=== PATIENT | female | born 1940 | race Caucasian/White ===

== ENCOUNTER → 2023-04-14 | Outpatient (CLI) | payer MEDICARE ==
--- NOTE | 2023-04-15 15:58 | MM ---
Reason for Exam: Screening (asymptomatic). Last mammogram was performed 1 year(s) and 5 month(s) ago. Patient History: Menarche at age 12. First Full-Term at age 23. Left ovary removed at age 54. Right ovary removed at age 54. Hysterectomy at age 54. Postmenopausal. Breast cancer, right, age 71. 06/07/1999, Stereotactic Core Biopsy on the Left side. 07/07/2009, US biopsy breast VAD LT - 2 on the Left side. 08/03/2011, Malignant Mastectomy on the right side. Prior Study Comparison: 10/20/2019 Bilateral Screening Mammogram, Unknown. 10/23/2020 Bilateral Screening Mammogram, Unknown. 11/02/2021 Bilateral Screening Mammogram, Unknown. Tissue Density: Left: The breast tissue is heterogeneously dense. This may lower the sensitivity of mammography. Findings: Analyzed By CAD. Microclip from prior biopsy. Unchanged nipple inversion. Benign round and coarse calcifications scattered throughout the left breast. Chronic nodularity and unchanged areas of asymmetric density noted. There is no suspicious group of microcalcifications or new suspicious mass in either breast. Overall Assessment: Benign, BI-RAD 2 Management: Screening Mammogram of the left breast in 1 year. . Patient should continue monthly self-breast exams. A clinical breast exam by your physician is recommended on an annual basis. This exam should not preclude additional follow-up of suspicious palpable abnormalities. Electronically signed and approved by: Mikki Tellez M.D. Radiologist
== END | disposition home or self-care (01) ==
LOC: RADMAMWWP 11:21
PROVIDERS: ATTEND Family Medicine
DX: Z12.31 Encounter for screening mammogram for malignant neoplasm of breast (principal); R92.333 Mammographic heterogeneous density, bilateral breasts; Z90.710 Acquired absence of both cervix and uterus; Z78.0 Asymptomatic menopausal state; Z90.11 Acquired absence of right breast and nipple
CPT/HCPCS: 77067